=== PATIENT | male | born 1960 | race Caucasian/White ===

== ENCOUNTER 2016-01-15 13:39 | Outpatient (RCR) | payer OTHER | END 2016-03-24 | LOC: WSOH | DX: Z01.83 Encounter for blood typing (principal); M79.621 Pain in right upper arm; S46.811D Strain of other muscles, fascia and tendons at shoulder and upper arm level, right arm, subsequent encounter ==

== ENCOUNTER → 2016-11-15 | Outpatient (CLI) | payer OTHER | LOC: COL.RAD 10-27 08:30 | DX: S46.811A Strain of other muscles, fascia and tendons at shoulder and upper arm level, right arm, initial encounter (principal); M19.011 Primary osteoarthritis, right shoulder; M75.21 Bicipital tendinitis, right shoulder; Z98.890 Other specified postprocedural states | CPT/HCPCS: A9585; Q9967 ==

== ENCOUNTER → 2020-04-22 | Outpatient (CLI) | payer BC | LOC: COL.RAD | DX: E04.2 Nontoxic multinodular goiter (principal); E07.89 Other specified disorders of thyroid ==

== ENCOUNTER 2021-10-22 10:52 | Outpatient (CLI) | payer BC ==
[~2021-10-22] VITALS: Ht 175.3 cm; Wt 70.2 kg
[2021-10-22] MEDS ORDERED: PRINIVIL5 MG PO (11:30)
[2021-10-22] MEDS ORDERED: LIPITOR 10MG10 MG PO (11:30)
[2021-10-22 11:31] VITALS: BP 139/80; PULSE 48; TEMP 98.2
[2021-10-22 12:06] LABS: BASO # 0.1 K/mm3 (0.0-0.2); BASO % 0.8 % (0.0-2.0); EOS # 0.3 K/mm3 (0.0-0.7); EOS % 4.6 % (0.0-4.0); GRAN # 3.3 K/mm3 (1.4-6.5); GRAN % 51.4 % (42.2-75.2); HEMATOCRIT 44.1 % (42.0-52.0); HEMOGLOBIN 15.4 g/dl (13.5-18.0); INR 1.1 (0.8-3.0); LYMPH # 2.1 K/mm3 (1.2-3.4); LYMPH % 32.5 % (20.0-51.0); MEAN CELL VOLUME 87 fl (80.0-100.0); MEAN CORPUSCULAR HEMOGLOBIN 30 pg (27-31); MEAN CORPUSCULAR HGB CONC 35 g/dl (33.0-37.0); MEAN PLATELET VOLUME 9.9 fl (7.4-10.4); MONO # 0.7 K/mm3 (0.1-0.6); MONO % 10.4 % (1.7-9.3); PLATELET COUNT 207 K/mm3 (130-400); PROTHROMBIN TIME 12.6 SECONDS (9.7-12.8); RED BLOOD COUNT 5.06 M/mm3 (4.20-5.60); REDCELL DISTRIBUTION WIDTH-CV 11.5 % (11.5-14.5)
[2021-10-22 12:18] LABS: CALCIUM 9.4 mg/dL (8.4-10.2); CREATININE, serum 1.04 mg/dL (0.72-1.25); POTASSIUM 4.1 mmol/L (3.5-4.5)
[2021-10-22 13:20] VITALS: BP 122/76; PULSE 76
[2021-10-22 13:30] VITALS: BP 107/73; PULSE 43
--- NOTE | 2021-10-22 13:30 | NUR ---
BS report from Rodney HERNANDEZ. Pt is awake, pwd, resp reg and unlabored. Pt remains sinus bernadette on monitor. pt denies any discomfort to throat or any other complaints. pt provided water and a pepsi, no problems swallowing. brought back to bedside, and both are updated on plan of care.
[2021-10-22 13:45] VITALS: BP 140/83; PULSE 47
[2021-10-22 14:00] VITALS: BP 130/78; PULSE 41
[2021-10-22 14:15] VITALS: BP 126/78; PULSE 45
== END 2021-10-22 16:59 | disposition home or self-care (01) ==
LOC: COL.RAD 10:52
PROVIDERS: Internal Medicine Adult Congenital Heart Disease
DX: I35.0 Nonrheumatic aortic (valve) stenosis (principal)
CPT/HCPCS: J2704

== ENCOUNTER 2023-10-10 06:47 | Day surgery (SDC) | payer BC ==
[2023-10-10] VITALS (8 sets, daily range): BP systolic 122–139; BP diastolic 71–92; PULSE 42–55; TEMP 98
[~2023-10-10] VITALS: Ht 175.4 cm; Wt 72.3 kg
[~2023-10-10 06:47] MED LIST: 1/2 NS 1,000 ML IV SCH; LIPITOR 10MG10 MG PO; PRINIVIL5 MG PO
[2023-10-10 08:06] LABS: HEMATOCRIT 45.3 % (42.0-52.0); HEMOGLOBIN 15.9 g/dl (13.5-18.0); MEAN CELL VOLUME 85 fl (80.0-100.0); MEAN CORPUSCULAR HEMOGLOBIN 30 pg (27-31); MEAN CORPUSCULAR HGB CONC 35 g/dl (33.0-37.0); MEAN PLATELET VOLUME 10.1 fl (7.4-10.4); PLATELET COUNT 184 K/mm3 (130-400); RED BLOOD COUNT 5.31 M/mm3 (4.20-5.60); REDCELL DISTRIBUTION WIDTH-CV 11.5 % (11.5-14.5)
[2023-10-10 08:17] LABS: INR 1.1 (0.8-3.0); PROTHROMBIN TIME 11.8 SECONDS (9.7-12.8)
[2023-10-10 08:20] LABS: PARTIAL THROMBOPLASTIN TIME 27.2 SECONDS (26.0-37.0)
[2023-10-10 08:26] LABS: CALCIUM 9.3 mg/dL (8.4-10.2); CREATININE, serum 1.17 mg/dL (0.72-1.25)
[2023-10-10] MEDS ORDERED: Nitroglycerin 2% Topical Oint 1 GM UD TD SCH (08:37)
[2023-10-10] MEDS ORDERED: niCARdipine (Cath Lab) 100 MCG/ML 10 ML VIAL IA SCH (09:26)
[2023-10-10] MEDS ORDERED: Heparin 1,000 UNITS/ML 10 ML Multi-Dose VIAL IV SCH (09:26)
[2023-10-10] MEDS ORDERED: Iohexol 350 - 100 ML VIAL INCOR SCH (09:56)
[2023-10-10] MEDS ORDERED: Midazolam 2 MG/2 ML VIAL IV SCH (09:57)
[2023-10-10] MEDS ORDERED: fentaNYL 50 MCG/ML 2 ML VIAL IV SCH (09:58)
--- NOTE | 2023-10-10 10:28 | NUR ---
Please see merge document for record of interventions, vitals and medications administered during left heart cath with Dr. Merino. Gregory was transferred back to express unit rm 12 after heart cath. TR band to rt wrist, cms intact distal, no bleeding noted. Hooked up for post procedure vitals and monitoring. family at bs. bs report and handoff of care to Lilliana HERNANDEZ.
[2023-10-10] MEDS ORDERED: LIPITOR 40MG TA40 MG PO (10:36)
[2023-10-10] MEDS ORDERED: ASPIRIN E.C. 8181 MG PO (10:36)
[2023-10-10] MEDS ORDERED: FISH OIL 1000MG1 CAP PO (10:37)
--- NOTE | 2023-10-10 13:12 | NUR ---
PT TOLERATED RECOVERY PERIOD WELL. VS REMAINED WITHIN NORMAL LIMITS. PT FREE FROM ACUTE CONCERNS AND COMPLAINTS UPON DISCHARGE. IV DISCONTINUED. PT ASSISTED TO MAIN LOBBY VIA WHEELCHAIR. PT'S RIGHT RADIAL DRESSING REMAINED CLEAN DRY AND INTACT AND RIGHT RADIAL SITE REMAINED FREE FROM SIGNS OF BLEEDING AND HEMATOMA. PT TOLERATED PO FOOD AND FLUIDS THROUGHOUT RECOVERY.
== END 2023-10-10 13:14 | disposition home or self-care (01) ==
LOC: COL.CAR 06:47
PROVIDERS: Internal Medicine Cardiovascular Disease
DX: I35.0 Nonrheumatic aortic (valve) stenosis (principal); Q23.1 Congenital insufficiency of aortic valve; I25.10 Atherosclerotic heart disease of native coronary artery without angina pectoris; I10 Essential (primary) hypertension
CPT/HCPCS: C1769; C1887; J1644; J2250; J2404; J3010; Q9967